=== PATIENT | female | born 1960 | race Caucasian/White ===

== ENCOUNTER 2018-02-27 11:46 | Inpatient (IN) ==
--- NOTE | 2018-02-27 13:46 | ED ---
HPI General Chief Complaint: Psychiatric Symptoms Stated Complaint: Med Complaint Time Seen by Provider: 02/27/18 13:22 Source: patient and family Mode of arrival: ambulatory Limitations: no limitations History of Present Illness MD complaint: Reports other (Hallucinations) Onset (ago): day(s) Duration: constant and getting worse History of same: Yes Relieving factors: none Exacerbating factors: none Associated psychiatric symptoms: Reports auditory hallucinations; Denies suicidal ideation and homicidal ideation Associated symptoms: Reports denies other symptoms Treatments prior to arrival: Reports none Related Data Home Medications Medication Instructions Recorded Confirmed chlorthalidone 25 mg PO DAILY 02/21/18 02/27/18 losartan 25 mg PO DAILY 02/21/18 02/27/18 verapamil 80 mg PO TID 02/21/18 02/27/18 Allergies Allergy/AdvReac Type Severity Reaction Status Date / Time lactose Allergy Cough Unverified 02/27/18 12:04 Review of Systems ROS: all other systems reviewed are negative [facility] Medical History Medical History Arthritis (Acute) Asthma (Acute) Depression (Acute) Hypertension (Acute) Mood disorder (Acute) Sleep apnea (Acute) Surgical History Surgical History H/O section (Acute) Social History Social History Substance History: Unable to Obtain Second Hand Smoke Exposure: No Smoking Status: Never smoker How Often Do You Have a Drink Containing Alcohol: Never Recent Travel in [facility] within the Last 8 Weeks: No Recent Out of Country Travel within the Last 8 Weeks: No Immunization History Tetanus Immunization: <5 Years Exam Const General: cooperative, healthy appearing, comfortable, no acute distress, well developed and other Orientation: alert, awake and oriented x3 HENMT Head: normal to inspection, normocephalic and atraumatic Eyes Alignment and Position: alignment normal and position abnormal Conjunctivae: conjunctivae normal Sclera: sclerae normal EOM: EOM intact bilaterally Neck Neck: normal visual inspection and full ROM Chest Chest: normal inspection of the chest Resp Effort & Inspection: normal respiratory effort and able to speak in complete sentences Auscultation: clear to auscultation bilaterally Cardio Rate: regular rate Rhythm: regular rhythm GI Inspection: normal to inspection Palpation: soft Back/Spine/Pelvis Cervical Spine: cervical ROM normal Thoracic/Lumbar Spine: thoraco-lumbar ROM normal Skin General: no rashes or lesions noted, turgor normal and dry skin Neuro General: alert, awake, oriented x3, moves all extremities and CN's II-XI intact bilaterally Extrem General: normal to inspection and full ROM Psych Appearance: other (Obese. Sitting on the edge of the stretcher with her eyes closed.) Speech and Movement: speech and movement normal Mood: congruent mood Affect: blunted Attitude: cooperative Thought Content: hallucinations Course Initial Documented Vital Signs Temperature 99.4 F 02/27/18 11:58 Pulse Rate 90 02/27/18 11:58 Respiratory Rate 16 02/27/18 11:58 Blood Pressure 136/91 H 02/27/18 11:58 Pulse Oximetry 92 L 02/27/18 11:58 Last Documented Vital Signs Temperature 98.1 F 02/27/18 14:05 Pulse Rate 66 02/27/18 17:17 Respiratory Rate 18 02/27/18 17:17 Blood Pressure 170/88 H 02/27/18 17:17 Pulse Oximetry 96 02/27/18 17:17 Medical Decision Making [facility] Narrative Medical decision making narrative: This patient is brought in by her daughter who is her stator tester with a chief complaint of progressively worsening hallucinations. The daughter came here hoping to get a prescription for Haldol. The daughter was instructed that the patient will need to be seen before she could be given a prescription for Haldol. When she went back out to the parking lot to get her mother, she found her wandering around in the parking lot. She seemed confused. The daughter states that the patient has started threatening people. She was supposed to go to [facility] today for a Haldol injection. However, she apparently did not have an appointment with them today. [facility] instructed the daughter to bring the patient here. The daughter reports that they have been here several times in the last few days and that nothing has been done to help her mother from a psychiatric standpoint. I have ordered the psych medical screening labs. She needs to be seen by psych screening. CBC shows slightly elevated white blood cell count of 14.1, otherwise unremarkable. CMP shows renal insufficiency with creatinine 1.74, BUN 30, GFR 30. Slightly above her baseline previous labs. Urinalysis shows 30 protein, large occult blood, trace leukocyte esterase, 6 red blood cells, 14 white blood cells, few bacteria, few mucus. Consistent with UTI, patient will be treated with Keflex. Urine tox is negative. Alcohol is negative. Patient is medically cleared for psychiatric evaluation and disposition. Patient seen by clinical psychologist licensedLYDIA Flor who states patient will be admitted to inpatient psych for further treatment and evaluation. Medical Screen Exam Complete: Yes Emergency Medical Condition: Yes Differential Diagnosis Differential Diagnosis: Differential diagnosis of psychosis includes but is not limited to schizophrenia, schizoaffective disorder, bipolar disorder, intoxication, substance abuse, dementia Lab Data Result diagrams: 02/27/18 14:00 02/27/18 14:00 Lab Results 02/27/18 02/27/18 02/27/18 Range/Units 14:00 14:00 14:00 WBC 14.1 H (4.0-11.0) th/mm3 RBC 4.57 (4.00-5.30) mil/mm3 Hgb 12.7 (11.6-15.3) gm/dL Hct 39.7 (35.0-46.0) % MCV 87.0 (80.0-100.0) fL MCH 27.9 (27.0-34.0) pg MCHC 32.0 (32.0-36.0) % RDW 21.5 H (11.6-17.2) % Plt Count 450 (150-450) th/mm3 MPV 7.7 (7.0-11.0) fL Neut % (Auto) 81.3 H (16.0-70.0) % Lymph % (Auto) 10.4 (9.0-44.0) % [place] % (Auto) 7.6 (0.0-8.0) % Eos % (Auto) 0.3 (0.0-4.0) % Baso % (Auto) 0.4 (0.0-2.0) % Neut # (Auto) 11.4 H (1.8-7.7) th/mm3 Lymph # (Auto) 1.5 (1.0-4.8) th/mm3 [place] # (Auto) 1.1 H (0.0-0.9) th/mm3 Eos # (Auto) 0.0 (0.0-0.4) th/mm3 Baso # (Auto) 0.1 (0.0-0.2) th/mm3 WBC Differential . Differential Comment Auto diff final Sodium 136 (136-145) meq/L Potassium 3.7 (3.5-5.1) meq/L Chloride 98 (98-107) meq/L Carbon Dioxide 29.2 (21.0-32.0) meq/L Anion Gap 9 (5-15) meq/L BUN 30 H (7-18) mg/dL Creatinine 1.74 H (0.50-1.00) mg/dL Estimated GFR 30 L (>89) mL/min Random Glucose 108 H (74-106) mg/dL Calcium 9.4 (8.5-10.1) mg/dL Magnesium 2.0 (1.5-2.5) mg/dL Total Bilirubin 0.6 (0.2-1.0) mg/dL AST 22 (15-37) U/L ALT 31 (10-53) U/L Alkaline Phosphatase 127 H (45-117) U/L Total Protein 9.2 H D (6.4-8.2) g/dL Albumin 3.8 (3.4-5.0) g/dL TSH 1.100 (0.358-3.740) uIU/mL Urine Color (Yellw/Straw) Urine Clarity (Clear) Urine pH (5.0-8.5) Ur Specific [place] (1.002-1.035) Urine Protein (Neg-Trace) mg/dL Urine Glucose (UA) (Negative) mg/dL Urine Ketones (Negative) mg/dL Urine Occult Blood (Negative) Urine Nitrate (Negative) Urine Bilirubin (Negative) Urine Urobilinogen (Less than 2) mg/dL Ur Leukocyte Esterase (Negative) Urine RBC (0-3) /hpf Urine WBC (0-5) /hpf Ur Squamous Epith Cells (0-5) /hpf Urine Bacteria (None) /hpf Hyaline Casts (0-3) /lpf Urine Mucus (Occasional) /lpf Micro UA Comment Ur Microscopic Review Urine Culture Comments Urine Opiates Screen Neg (Neg) Ur Barbiturates Screen Neg (Neg) Ur Amphetamines Screen Neg (Neg) U Benzodiazepines Scrn Neg (Neg) Urine Cocaine Screen Neg (Neg) U Cannabinoids Screen Neg (Neg) Serum Alcohol Less than 3 (0-5) mg/dL 02/27/18 Range/Units 14:00 WBC (4.0-11.0) th/mm3 RBC (4.00-5.30) mil/mm3 Hgb (11.6-15.3) gm/dL Hct (35.0-46.0) % MCV (80.0-100.0) fL MCH (27.0-34.0) pg MCHC (32.0-36.0) % RDW (11.6-17.2) % Plt Count (150-450) th/mm3 MPV (7.0-11.0) fL Neut % (Auto) (16.0-70.0) % Lymph % (Auto) (9.0-44.0) % [place] % (Auto) (0.0-8.0) % Eos % (Auto) (0.0-4.0) % Baso % (Auto) (0.0-2.0) % Neut # (Auto) (1.8-7.7) th/mm3 Lymph # (Auto) (1.0-4.8) th/mm3 [place] # (Auto) (0.0-0.9) th/mm3 Eos # (Auto) (0.0-0.4) th/mm3 Baso # (Auto) (0.0-0.2) th/mm3 WBC Differential Differential Comment Sodium (136-145) meq/L Potassium (3.5-5.1) meq/L Chloride (98-107) meq/L Carbon Dioxide (21.0-32.0) meq/L Anion Gap (5-15) meq/L BUN (7-18) mg/dL Creatinine (0.50-1.00) mg/dL Estimated GFR (>89) mL/min Random Glucose (74-106) mg/dL Calcium (8.5-10.1) mg/dL Magnesium (1.5-2.5) mg/dL Total Bilirubin (0.2-1.0) mg/dL AST (15-37) U/L ALT (10-53) U/L Alkaline Phosphatase (45-117) U/L Total Protein (6.4-8.2) g/dL Albumin (3.4-5.0) g/dL TSH (0.358-3.740) uIU/mL Urine Color [place] (Yellw/Straw) Urine Clarity Hazy H (Clear) Urine pH 5.0 (5.0-8.5) Ur Specific [place] 1.016 (1.002-1.035) Urine Protein 30 H (Neg-Trace) mg/dL Urine Glucose (UA) Negative (Negative) mg/dL Urine Ketones Negative (Negative) mg/dL Urine Occult Blood Large H (Negative) Urine Nitrate Negative (Negative) Urine Bilirubin Negative (Negative) Urine Urobilinogen 0.2 (Less than 2) mg/dL Ur Leukocyte Esterase Trace H (Negative) Urine RBC 6 H (0-3) /hpf Urine WBC 14 H (0-5) /hpf Ur Squamous Epith Cells 1 (0-5) /hpf Urine Bacteria Few H (None) /hpf Hyaline Casts 34 (0-3) /lpf Urine Mucus Few H (Occasional) /lpf Micro UA Comment Culture indicated Ur Microscopic Review Not Reportable Urine Culture Comments Culture indicated Urine Opiates Screen (Neg) Ur Barbiturates Screen (Neg) Ur Amphetamines Screen (Neg) U Benzodiazepines Scrn (Neg) Urine Cocaine Screen (Neg) U Cannabinoids Screen (Neg) Serum Alcohol (0-5) mg/dL Discharge Plan Discharge Disposition Patient Disposition: ED Admit(ED Internal Use Only) Discharge Condition Condition: Stable Discharge Details Diagnosis: Acute psychosis Physicians Team ED Provider: Charmaine Madrigal ED Midlevel Provider: Mariel Hagan Primary Care Provider: Jcarlos Jimenez III Rxs /Orders / Referrals /Forms Prescriptions: No Action chlorthalidone 25 mg Tablet 25 mg PO DAILY RF: 0 losartan 25 mg Tablet 25 mg PO DAILY RF: 0 verapamil 80 mg Tablet 80 mg PO TID RF: 0 Status ED Status: Medically Cleared
[2018-02-27 14:26] LABS: Baso # (Auto) 0.1 th/mm3 (0.0-0.2); Baso % (Auto) 0.4 % (0.0-2.0); Eos % (Auto) 0.3 % (0.0-4.0); Hematocrit 39.7 % (35.0-46.0); Hemoglobin 12.7 gm/dL (11.6-15.3); Lymph # (Auto) 1.5 th/mm3 (1.0-4.8); Lymph % (Auto) 10.4 % (9.0-44.0); Mean Corpuscular Hemoglobin 27.9 pg (27.0-34.0); Mean Platelet Volume 7.7 fL (7.0-11.0); Mono # (Auto) 1.1 th/mm3 (0.0-0.9); Mono % (Auto) 7.6 % (0.0-8.0); Neut # (Auto) 11.4 th/mm3 (1.8-7.7); Neut % (Auto) 81.3 % (16.0-70.0); Platelet Count 450 th/mm3 (150-450); Red Blood Count 4.57 mil/mm3 (4.00-5.30); Red Cell Distribution Width 21.5 % (11.6-17.2); White Blood Count 14.1 th/mm3 (4.0-11.0)
[2018-02-27 14:34] LABS: Amphetamine Screen,Urine Neg (Neg); Barbiturate Screen,Urine Neg (Neg); Cannabinoid Screen,Urine Neg (Neg); Cocaine Screen,Urine Neg (Neg)
[2018-02-27 14:38] LABS: Opiate Screen,Urine Neg (Neg)
[2018-02-27 14:42] LABS: Alanine Aminotransferase 31 U/L (10-53); Albumin 3.8 g/dL (3.4-5.0); Anion Gap 9 meq/L (5-15); Aspartate Aminotransferase 22 U/L (15-37); Blood Urea Nitrogen 30 mg/dL (7-18); Calcium 9.4 mg/dL (8.5-10.1); Carbon Dioxide 29.2 meq/L (21.0-32.0); Chloride 98 meq/L (98-107); Glomerular Filtration Rate 30 mL/min (>89); Glucose,Random 108 mg/dL (74-106); Potassium 3.7 meq/L (3.5-5.1); Sodium 136 meq/L (136-145)
[2018-02-27 14:52] LABS: Alkaline Phosphatase 127 U/L (45-117); Total Protein 9.2 g/dL (6.4-8.2)
[2018-02-27 15:12] LABS: Bacteria,Urine Few /hpf; Bilirubin,Urine Negative (Negative); Clarity,Urine Hazy (Clear); Color,Urine Amber (Yellw/Straw); Glucose,Urine (UA) Negative (Negative); Hyaline Casts,Urine 34 /lpf (0-3); Leukocyte Esterase,Urine Trace (Negative); Mucus,Urine Few /lpf (Occasional); Nitrite,Urine Negative (Negative); Specific Gravity,Urine 1.016 (1.002-1.035); Squamous Epithelial Cell,Urine 1 /hpf (0-5)
[2018-02-27 15:16] LABS: Urobilinogen,Urine 0.2 mg/dL (Less than 2)
--- NOTE | 2018-02-27 18:29 | ED ---
HPI - Psych - General Time Seen by Psych Provider: 17:30 Source: patient, family (Daughter at bedside), old records reviewed Mode of arrival: ambulatory Limitations: physical limitation (morbidly obese) - History of Present Illness MD complaint: other Onset (ago): day(s) Duration: constant, getting worse History of same: Yes Relieving factors: none Exacerbating factors: none Context: not taking psychiatric medications Associated psychiatric symptoms: auditory hallucinations Associated symptoms: denies other symptoms Treatments prior to arrival: none If self harm: other (Unable to assess) - General Chief Complaint: Psychiatric Symptoms Stated Complaint: Med Complaint Time Seen by Provider: 02/27/18 13:22 - History of Present Illness HPI Narrative: History of Present Illness: DaughterBettina is at bedside. I know the mother came in [facility] patient is a 58-year-old , female, with previous psychiatric history of unspecified psychosis secondary to sleep deprivation, adjustment disorder, four previous psychiatric admissions, one remote history of suicide attempt, currently not taking any psychiatric medications who presents to the ED on a voluntary status accompanied by her daughter. On reviewing the electronic medical record I see that the patient has presented to the emergency department on February 20, 2018 complaining of feeling stressed and depressed and not being able to sleep. She presented on 02/23/2018 complaining of shortness of breath, next visit on 02/26/2018 requesting medication and also reporting sleep impairment as well as hallucinations. She was discharged because she informed the provider that she had an appointment today at [facility] for medication. Unfortunately the daughter tells me that when she took her mother to [facility] they were unable to see her and referred her back to the emergency department. Today her daughter tells me that the mom has been having continued difficulty with sleep for at least 3 weeks, has been reporting she is hearing voices that are telling her to throw herself on the floor as well as had are telling her to hurt her brother, she has been telling her that people are listening to her conversations and are looking at her when they are actually not doing so, and has one episode of leaving the car and wandering around the hospital parking lot. The patient is seen. She is in bed with her eyes closed. She opens them briefly but does not maintain eye contact for any amount of time. She did respond to some questions but for the most part she remained nonverbal. She did tell me that "I keep hearing voices in my head."As stated previously she then closes her eyes and did not answer any further questions. EMR reviewed. The patient has 4 previous admissions to [facility] psychiatry Department. Her last admission was in 2015 under the care of Dr. Terrance Alejandro with a discharge diagnosis of adjustment disorder with depressed mood and dependent personality disorder traits. Patient has not followed up with outpatient psychiatric care since this discharged. Labs are reviewed. Patient with WBC of 14.1 and has been given a first dose of Keflex for suspected UTI. Toxicology is negative (Basia Bobby) - Related Data Home Medications Medication Instructions Recorded Confirmed chlorthalidone 25 mg PO DAILY 02/21/18 02/27/18 losartan 25 mg PO DAILY 02/21/18 02/27/18 verapamil 80 mg PO TID 02/21/18 02/27/18 Allergies Allergy/AdvReac Type Severity Reaction Status Date / Time lactose Allergy Cough Unverified 02/27/18 12:04 [facility] - History History Provided By: Patient, Family Member, Medical Record - Medical History Medical History: Medical History (Last Reviewed 02/27/18 @ 13:41 by Charmaine Madrigal) Arthritis Asthma Depression Hypertension Mood disorder Sleep apnea - Surgical History Surgical History: Surgical History (Last Reviewed 02/27/18 @ 13:41 by Charmaine Madrigal) H/O section - Social History I have reviewed the patient's Social History: Yes - Tobacco History Second Hand Smoke Exposure: No Smoking Status: Never smoker - Alcohol History How Often Do You Have a Drink Containing Alcohol: Never - Substance Use History Substance History: Unable to Obtain - Travel History Recent Travel in the [facility] Within the Last 8 Weeks: No Recent Travel Out of the Country Within the Last 8 Weeks: No - Immunization History Tetanus Immunization: <5 Years Psychiatric History - Psychiatric History Psychiatric Treatment History: History of Psychiatric Treatment, History of Hospitalization in a Psychiatric Facility History of Inpatient Treatment: Yes Firearms in Home: No - Psychiatric History 4 lifetime psychiatric admissions to [facility] psychiatry Department. Her last admission was in 2015. No current outpatient psychiatric care. Went remote previous suicide attempt. (Basia Bobby) - Family Psychiatric History Maternal grandmother completed suicide. (Basia Bobby) Physical Exam - General Limitations: no limitations Mental Status Examination Appearance: Disheveled, Other (Morbidly obese female) Consciousness: Alert Orientation: Person Motor Activity: Other Speech: Hesitant, Other (Nonverbal at times) Language: Adequate Fund of Knowledge: Adequate Attention and Concentration: Inadequate Memory: Unremarkable Mood: Sad Affect: Blunt Thought Process & Associations: Other (Unable to fully evaluate) Thought Content: Hallucinations Hallucination Type: Auditory Delusion Type: Paranoid Suicidal Ideation: No Suicidal Plan: No Suicidal Intention: No Homicidal Ideation: No Homicidal Plan: No Homicidal Intention: No Insight: Poor Judgment: Poor Initial Documented Vital Signs Temperature 99.4 F 02/27/18 11:58 Pulse Rate 90 02/27/18 11:58 Respiratory Rate 16 02/27/18 11:58 Blood Pressure 136/91 H 02/27/18 11:58 Pulse Oximetry 92 L 02/27/18 11:58 Last Documented Vital Signs Temperature 98.1 F 02/27/18 14:05 Pulse Rate 66 02/27/18 17:17 Respiratory Rate 18 02/27/18 17:17 Blood Pressure 170/88 H 02/27/18 17:17 Pulse Oximetry 96 02/27/18 17:17 MDM - Psych - Diagnosis (1) Unspecified psychosis Code(s): F29 - Unspecified psychosis not due to a substance or known physiological condition Status: Acute - Lab Data Result diagrams: 02/27/18 14:00 02/27/18 14:00 - [facility] Narrative Medical decision making narrative: 58-year-old female with previous psychiatric history of adjustment disorder as well as unspecified psychosis secondary to sleep deprivation. Who presents to the emergency department for her fourth visit within a week. Today the patient continues to endorse sleep impairment, hallucinations, paranoid thoughts. Family reported increase in threats to harm family members as well as wandering around the hospital parking lot which she is not usual behavior for the patient. The family was hoping the patient would be seen today at [facility] for medications but they were unable to see her and they referred her here to the hospital. Patient will be admitted to inpatient psychiatry for further evaluation and for stabilization and for medication. I have placed her under an involuntary status at this time. I will order a hospitalist consult to manage medical issues. (Basia Bobby) - Lab Data Lab Results 01/07/19 01/07/19 01/07/19 Range/Units 14:00 14:00 14:00 WBC 14.1 H (4.0-11.0) th/mm3 RBC 4.57 (4.00-5.30) mil/mm3 Hgb 12.7 (11.6-15.3) gm/dL Hct 39.7 (35.0-46.0) % MCV 87.0 (80.0-100.0) fL MCH 27.9 (27.0-34.0) pg MCHC 32.0 (32.0-36.0) % RDW 21.5 H (11.6-17.2) % Plt Count 450 (150-450) th/mm3 MPV 7.7 (7.0-11.0) fL Neut % (Auto) 81.3 H (16.0-70.0) % Lymph % (Auto) 10.4 (9.0-44.0) % [place] % (Auto) 7.6 (0.0-8.0) % Eos % (Auto) 0.3 (0.0-4.0) % Baso % (Auto) 0.4 (0.0-2.0) % Neut # (Auto) 11.4 H (1.8-7.7) th/mm3 Lymph # (Auto) 1.5 (1.0-4.8) th/mm3 [place] # (Auto) 1.1 H (0.0-0.9) th/mm3 Eos # (Auto) 0.0 (0.0-0.4) th/mm3 Baso # (Auto) 0.1 (0.0-0.2) th/mm3 WBC Differential . Differential Comment Auto diff final Sodium 136 (136-145) meq/L Potassium 3.7 (3.5-5.1) meq/L Chloride 98 (98-107) meq/L Carbon Dioxide 29.2 (21.0-32.0) meq/L Anion Gap 9 (5-15) meq/L BUN 30 H (7-18) mg/dL Creatinine 1.74 H (0.50-1.00) mg/dL Estimated GFR 30 L (>89) mL/min Random Glucose 108 H (74-106) mg/dL Calcium 9.4 (8.5-10.1) mg/dL Magnesium 2.0 (1.5-2.5) mg/dL Total Bilirubin 0.6 (0.2-1.0) mg/dL AST 22 (15-37) U/L ALT 31 (10-53) U/L Alkaline Phosphatase 127 H (45-117) U/L Total Protein 9.2 H D (6.4-8.2) g/dL Albumin 3.8 (3.4-5.0) g/dL TSH 1.100 (0.358-3.740) uIU/mL Urine Color (Yellw/Straw) Urine Clarity (Clear) Urine pH (5.0-8.5) Ur Specific [place] (1.002-1.035) Urine Protein (Neg-Trace) mg/dL Urine Glucose (UA) (Negative) mg/dL Urine Ketones (Negative) mg/dL Urine Occult Blood (Negative) Urine Nitrate (Negative) Urine Bilirubin (Negative) Urine Urobilinogen (Less than 2) mg/dL Ur Leukocyte Esterase (Negative) Urine RBC (0-3) /hpf Urine WBC (0-5) /hpf Ur Squamous Epith Cells (0-5) /hpf Urine Bacteria (None) /hpf Hyaline Casts (0-3) /lpf Urine Mucus (Occasional) /lpf Micro UA Comment Ur Microscopic Review Urine Culture Comments Urine Opiates Screen Neg (Neg) Ur Barbiturates Screen Neg (Neg) Ur Amphetamines Screen Neg (Neg) U Benzodiazepines Scrn Neg (Neg) Urine Cocaine Screen Neg (Neg) U Cannabinoids Screen Neg (Neg) Serum Alcohol Less than 3 (0-5) mg/dL 02/27/18 Range/Units 14:00 WBC (4.0-11.0) th/mm3 RBC (4.00-5.30) mil/mm3 Hgb (11.6-15.3) gm/dL Hct (35.0-46.0) % MCV (80.0-100.0) fL MCH (27.0-34.0) pg MCHC (32.0-36.0) % RDW (11.6-17.2) % Plt Count (150-450) th/mm3 MPV (7.0-11.0) fL Neut % (Auto) (16.0-70.0) % Lymph % (Auto) (9.0-44.0) % [place] % (Auto) (0.0-8.0) % Eos % (Auto) (0.0-4.0) % Baso % (Auto) (0.0-2.0) % Neut # (Auto) (1.8-7.7) th/mm3 Lymph # (Auto) (1.0-4.8) th/mm3 [place] # (Auto) (0.0-0.9) th/mm3 Eos # (Auto) (0.0-0.4) th/mm3 Baso # (Auto) (0.0-0.2) th/mm3 WBC Differential Differential Comment Sodium (136-145) meq/L Potassium (3.5-5.1) meq/L Chloride (98-107) meq/L Carbon Dioxide (21.0-32.0) meq/L Anion Gap (5-15) meq/L BUN (7-18) mg/dL Creatinine (0.50-1.00) mg/dL Estimated GFR (>89) mL/min Random Glucose (74-106) mg/dL Calcium (8.5-10.1) mg/dL Magnesium (1.5-2.5) mg/dL Total Bilirubin (0.2-1.0) mg/dL AST (15-37) U/L ALT (10-53) U/L Alkaline Phosphatase (45-117) U/L Total Protein (6.4-8.2) g/dL Albumin (3.4-5.0) g/dL TSH (0.358-3.740) uIU/mL Urine Color [place] (Yellw/Straw) Urine Clarity Hazy H (Clear) Urine pH 5.0 (5.0-8.5) Ur Specific [place] 1.016 (1.002-1.035) Urine Protein 30 H (Neg-Trace) mg/dL Urine Glucose (UA) Negative (Negative) mg/dL Urine Ketones Negative (Negative) mg/dL Urine Occult Blood Large H (Negative) Urine Nitrate Negative (Negative) Urine Bilirubin Negative (Negative) Urine Urobilinogen 0.2 (Less than 2) mg/dL Ur Leukocyte Esterase Trace H (Negative) Urine RBC 6 H (0-3) /hpf Urine WBC 14 H (0-5) /hpf Ur Squamous Epith Cells 1 (0-5) /hpf Urine Bacteria Few H (None) /hpf Hyaline Casts 34 (0-3) /lpf Urine Mucus Few H (Occasional) /lpf Micro UA Comment Culture indicated Ur Microscopic Review Not Reportable Urine Culture Comments Culture indicated Urine Opiates Screen (Neg) Ur Barbiturates Screen (Neg) Ur Amphetamines Screen (Neg) U Benzodiazepines Scrn (Neg) Urine Cocaine Screen (Neg) U Cannabinoids Screen (Neg) Serum Alcohol (0-5) mg/dL
[2018-02-27] MEDS ORDERED: Aluminum/Magnesium/Simethacone Susp 30 ML UDC PO PRN (18:42)
[2018-02-28] MEDS ORDERED: CHLORTHALIDONE 25 MG PO SCH (09:00)
[2018-02-28] MEDS: Chlorthalidone 50 MG Tablet PO SCH (12:29)
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
[2018-02-28] MEDS: traZODone 50 MG Tablet PO SCH (20:35)
[2018-02-28] MEDS: Haloperidol 5 MG Tablet PO SCH (20:41)
[2018-03-01] MEDS: Chlorthalidone 50 MG Tablet PO SCH (08:37)
[2018-03-01] MEDS: Haloperidol 5 MG Tablet PO SCH ×2 (08:37→20:10)
[2018-03-01 09:12] LABS: Hematocrit 36.7 % (35.0-46.0); Hemoglobin 11.9 gm/dL (11.6-15.3); Mean Corpuscular HGB Conc 32.4 % (32.0-36.0); Mean Corpuscular Hemoglobin 28.5 pg (27.0-34.0); Mean Platelet Volume 7.9 fL (7.0-11.0); Platelet Count 366 th/mm3 (150-450); Red Blood Count 4.17 mil/mm3 (4.00-5.30); Red Cell Distribution Width 21.8 % (11.6-17.2); White Blood Count 6.8 th/mm3 (4.0-11.0)
[2018-03-01 09:42] LABS: Calcium 9.1 mg/dL (8.5-10.1); Carbon Dioxide 27.5 meq/L (21.0-32.0); Potassium 3.5 meq/L (3.5-5.1)
--- NOTE | 2018-03-01 10:46 | P.PNPSY ---
Subjective Remarks: Patient seen in her room with nurse less, patient laying in bed, no acute distress. Chart reviewed. Hospitalist consult reviewed and appreciated. Patient states she slept somewhat better though her sleep is still disturbed the continued auditory hallucinations are somewhat intrusive nature. She is somewhat vague about suicidality at this time also. For now continue treatment no change Review of Systems All other systems reviewed negative except as stated in HPI Mental Status Examination Appearance: Appropriate, Disheveled, Other (Morbidly obese female) Consciousness: Alert Orientation: Person, Place, Date/Time Motor Activity: Other (Patient laying flat in bed with minimal movement) Speech: Hesitant, Other (Nonverbal at times) Language: Adequate Fund of Knowledge: Adequate Attention and Concentration: Inadequate Memory: Unremarkable Mood: Sad Affect: Other (Decreased range and intensity) Thought Process & Associations: Loose associations, Other (Unable to fully evaluate) Thought Content: Hallucinations Hallucination Type: Auditory Delusion Type: Paranoid Suicidal Ideation: No Suicidal Plan: No Suicidal Intention: No Homicidal Ideation: No Homicidal Plan: No Homicidal Intention: No Insight: Poor Judgment: Poor Assessment and Plan - Assessment (1) Unspecified psychosis Code(s): F29 - Unspecified psychosis not due to a substance or known physiological condition Status: Acute - Plan Plan: Patient continues depressed and psychotic, for now continue treatment no change Justification for Continued Inpatient Stay: At this time patient would decompensate if placed on lower level of care Discharge Planning: Probable return home with family Request Healthcare Surrogate/Guardian Advocate?: No (1) Unspecified psychosis Qualifiers: Psychosis type: brief psychotic disorder Qualified Code(s): F23 - Brief psychotic disorder
--- NOTE | 2018-03-01 14:08 | P.TTN ---
- Patient Problems Problems: 1. Discharge planning 2. Medication compliance 3. Knowledge deficit 4. Lack of coping skills - Progress Toward Goals Provider Present: Dr. Hao Quintanilla Provider Input: 03/01/18 patient found lying in her bed. Patient was pleasant, confused, medication compliant. Nurse Input: 03/01/18 Patient is cooperative, med compliant Psychiatric Counselors Present: Lilia Luke [facility] Psychiatric Therapist Input: 03/01/18 Patient found in her room lying down. Patient was pleasant, cooperative, still confused and paranoid. Patient is medication compliant Group Spec/RT/OT/ALLAN Present: ANGY Vogel Group Spec/RT/OT/ALLAN Input: 03/01/18 Patient refused to go to group - Documentation Teaching Recipient: Patient
--- NOTE | 2018-03-01 16:31 | P.PN ---
Subjective Interval history: Follow up for HTN uncontrolled, obesity, KUMAR: pt. seen and examined, sleeping, awakes to voice. Has no complaints other than feeling sleepy. Has not been drinking a lot of fluids. No cp, no sob. BP has been elevated up to 180s, HR up to 90s. Physical Exam Vital signs: Vital Signs 02/28/18 17:37 03/01/18 05:08 Temperature 97.2 F L 98.1 F Pulse Rate 100 H 91 H Respiratory Rate 20 18 Blood Pressure 164/72 H 187/84 H Pulse Oximetry 93 L 97 Intake & Output 02/28/18 03/01/18 03/01/18 18:59 06:59 18:59 Intake Total 1200 / 1200 0 / 0 Balance 1200 / 1200 0 / 0 Intake: Oral 1200 / 1200 0 / 0 Other: # Voids 2 1 Narrative: GENERAL: 58-year-old morbidly obese female, ambulating with walker, no apparent distress. SKIN: Warm and dry. Venous stasis bilateral lower extremity. HEAD: Atraumatic. Normocephalic. EYES: Pupils equal and round. No scleral icterus. No injection or drainage. ENT: No nasal bleeding or discharge. Mucous membranes pink and moist. NECK: Trachea midline. No JVD. CARDIOVASCULAR: Regular rate and rhythm. RESPIRATORY: No accessory muscle use. Clear to auscultation. Breath sounds equal bilaterally. Poor inspiratory effort. GASTROINTESTINAL: Abdomen soft, non-tender, nondistended. Hepatic and splenic margins not palpable. MUSCULOSKELETAL: No joint abnormality noted, ambulates with walker. Venous stasis to both legs, skin is thickened. Trace pedal edema. NEUROLOGICAL: Awakes to voice, alert oriented x3. Following commands. No focal deficits. PSYCHIATRIC:sleepy Results - Labs CBC & Chem 7: 03/01/18 08:06 03/01/18 08:06 Laboratory Results - last 24 hr 03/01/18 03/01/18 08:06 08:06 WBC 6.8 RBC 4.17 Hgb 11.9 Hct 36.7 MCV 88.0 MCH 28.5 MCHC 32.4 RDW 21.8 H Plt Count 366 MPV 7.9 Sodium 138 Potassium 3.5 Chloride 101 Carbon Dioxide 27.5 Anion Gap 10 BUN 47 H Creatinine 2.28 H Estimated GFR 22 L Random Glucose 84 Calcium 9.1 Microbiology 02/27/18 14:00 Clean Catch Urine Urine Culture - Final >100,000 cfu/mL mixed gram positive jayjay (probable contaminantes) Assessment and Plan - Plan 58-year-old morbidly obese female with history hypertension, obesity, sleep apnea, mood disorder, depression, chronic kidney disease stage III. Admitted for auditory hallucinations, mood disorder, depression. Currently under [place] act and psychiatric unit. Hospitalist service is consulted for medical management, presence of UTI Mood disorder with psychosis Depression -Continue with psychiatric management Chronic kidney disease stage III, patient appears to be at baseline Encourage p.o. intake of fluids Repeat BMP in the morning Patient counseled to avoid NSAIDs at home. She can take Tylenol as needed for arthritic pain. -Creat 2.28, GFR 22, enc. PO fluids. Will hold Cozaar and chlorthalidone. -enc. PO fluids. Hypertension, uncontrolled on chlorthalidone, Cozaar, verapamil -added clonidine 0.1 mg p.o. every 6 as needed for systolic greater than 160 and diastolic greater than 90 -will hold Chlorthalidone and Cozaar due to KUAMR, add Procardia XL 30 mg po daily. -HR elevated as well, on Verapamil-will hold and try Lopressor 25 mg po bid. -continue to monitor BP and adjust meds as necessary UA positive for UTI Continue Keflex 250 mg p.o. every 8 for 5 days -UC, mixed gram positive jayjay Obesity -Patient is counseled about weight, needs portion control, increase activity as tolerated Sleep apnea, does not use CPAP at home Needs to follow-up as outpatient to be fitted with mask Osteoarthritis, complaints of bilat knee pain Avoid NSAIDs, can use Tylenol as needed for pain Needs to lose weight Repeat labs in the morning DVT prophylaxispatient is ambulatory Repeat BMP in 2 days Code Status: Full code Discussed Condition With: RN, pt. Discharge Planning: Per psychiatric team
[2018-03-01] MEDS: traZODone 50 MG Tablet PO SCH (20:05)
[2018-03-01] MEDS: Metoprolol Tartrate 25 MG Tablet PO SCH (20:09)
--- NOTE | 2018-03-01 21:00 | P.CONPSY ---
Provisional Diagnosis Admission Date: February 27, 2018 18:42 [place] I.: Brief psychotic disorder History of Present Illness Service: Psychiatry Consult date: 03/01/18 Requesting Physician: Leroy Quintanilla Reason for Consult: Second opinion Primary Care Provider: Jcarlos Castro III, MD, R2 Chief Complaint: knee pain History of Present Illness: Patient is a 58 y/o woman who was admitted for psychosis, found ambulating on the unit, seen with nurse. Patient was explained the purpose of my visit. Patient states that she keeps hearing voices telling her that someone is in the room with her "whenever I'm in bed". She states that she also hears several voices, specifically the voices of her grandchildren which she believes is in her mattress. She also endorses bizarre delusions of "el violeta is after me" and that an FBI agent told her that there were devices and she was "wi-fi'-ed". She is ambiguous about suicidal ideation states that she will "if this doesn' t get better. Review of Systems All other systems reviewed negative except as stated in HPI PMFSH - History History Provided By: Patient, Medical Record - Medical History Medical History: Medical History (Last Updated 02/28/18 @ 15:35 by LYDIA Hernández) CKD (chronic kidney disease), stage III Obesity Venous stasis Arthritis Asthma Depression Hypertension Mood disorder Sleep apnea - Surgical History Surgical History: Surgical History (Last Reviewed 02/28/18 @ 15:35 by LYDIA Hernández) H/O section - Family History Family History: Family History (Last Updated 02/28/18 @ 15:36 by LYDIA Hernández) Other Diabetes 1.5, managed as type 2 - Tobacco History Second Hand Smoke Exposure: No Smoking Status: Never smoker - Alcohol History How Often Do You Have a Drink Containing Alcohol: Never - Substance Use History Substance History: Unable to Obtain - Travel History Recent Travel in the [place] Within the Last 8 Weeks: No Recent Travel Out of the Country Within the Last 8 Weeks: No - Immunization History Tetanus Immunization: <5 Years Hx Influenza Vaccine This Season: No Medications and Allergies Active Medications: Active Medications Acetaminophen (Tylenol) 650 mg PO Q4H PRN PRN Reason: Pain 1-5 or Temp >101F Al Hydrox/Mg Hydrox/Simethicone (Mag-Al Plus Susp Liq) 30 ml PO Q6H PRN PRN Reason: DYSPEPSIA Al Hydroxide/Mg Hydroxide (Milk Of Magnesia Liq) 30 ml PO Q12H PRN PRN Reason: Mild Constipation Cephalexin Monohydrate (Keflex) 250 mg PO Q8HR [facility] Stop: 03/05/18 13:59 Last Admin: 03/01/18 13:53 Dose: 250 mg Chlorthalidone (Hygroton) 25 mg PO DAILY [facility] Last Admin: 03/01/18 08:37 Dose: 25 mg Clonidine HCl (Catapres) 0.1 mg PO Q6H PRN PRN Reason: SBP>160, DBP>90 Last Admin: 03/01/18 05:30 Dose: 0.1 mg Diphenhydramine HCl (Benadryl) 50 mg PO HS PRN PRN Reason: INSOMNIA Last Admin: 03/01/18 20:10 Dose: 50 mg Haloperidol (Haldol) 5 mg PO BID [facility] Last Admin: 03/01/18 20:10 Dose: 5 mg Hydroxyzine HCl (Atarax) 50 mg PO Q6H PRN PRN Reason: ANXIETY Last Admin: 03/01/18 17:55 Dose: 50 mg Losartan Potassium (Cozaar) 50 mg PO DAILY [facility] Last Admin: 03/01/18 08:37 Dose: 50 mg Metoprolol Tartrate (Lopressor) 25 mg PO BID [facility] Last Admin: 03/01/18 20:09 Dose: 25 mg Miscellaneous (Pill Splitter) 1 each OTHER UNSCH PRN PRN Reason: SEE LABEL COMMENTS Nifedipine (Procardia Xl) 30 mg PO DAILY [facility] Trazodone HCl (Desyrel) 50 mg PO HS [facility] Last Admin: 03/01/18 20:05 Dose: Not Given Allergies Allergy/AdvReac Type Severity Reaction Status Date / Time lactose Allergy Cough Unverified 02/27/18 12:04 Home Medications Medication Instructions Recorded Confirmed Type chlorthalidone 25 mg PO DAILY 02/21/18 02/27/18 History losartan 25 mg PO DAILY 02/21/18 02/27/18 History verapamil 80 mg PO TID 02/21/18 02/27/18 History Exam Vital signs: Vital Signs 03/01/18 05:08 03/01/18 18:06 Temperature 98.1 F 97.3 F L Pulse Rate 91 H 70 Respiratory Rate 18 18 Blood Pressure 187/84 H 118/54 L Pulse Oximetry 97 98 Intake & Output 03/01/18 03/01/18 03/02/18 06:59 18:59 06:59 Intake Total 0 / 0 Balance 0 / 0 Intake: Oral 0 / 0 Other: # Voids 1 Narrative: Patient not noted to be in acute distress, no gross motor abnormalities, no signs of tremor or EPS, no psychomotor agitation or retardation. - Constitutional no acute distress, cooperative Mental Status Examination Appearance: Appropriate, Disheveled, Other (Morbidly obese female) Consciousness: Alert Orientation: Person, Place, Date/Time Motor Activity: Other (Patient laying flat in bed with minimal movement) Speech: Hesitant Language: Adequate Fund of Knowledge: Adequate Attention and Concentration: Inadequate Memory: Unremarkable Mood: Sad Affect: Blunt Thought Process & Associations: Loose associations, Other (concrete) Thought Content: Bizarre thinking, Hallucinations, Delusional Hallucination Type: Auditory Delusion Type: Bizarre, Paranoid Suicidal Ideation: No Suicidal Plan: No Suicidal Intention: No Homicidal Ideation: No Homicidal Plan: No Homicidal Intention: No Insight: Poor Judgment: Poor Assessment and Plan - Assessment (1) Unspecified psychosis Code(s): F29 - Unspecified psychosis not due to a substance or known physiological condition Status: Acute - Plan Plan: I have seen and examined this patient, reviewed the documentation, and I agree and concur with Dr. Quintanilla assessment and plan. I have completed second opinion for the petition for involuntary hospitalization. Consult appreciated. Justification for Continued Inpatient Stay: At risk of further decompensation at lower level care. Request Healthcare Surrogate/Guardian Advocate?: No (1) Unspecified psychosis Qualifiers: Psychosis type: brief psychotic disorder Qualified Code(s): F23 - Brief psychotic disorder
[2018-03-02] MEDS: Chlorthalidone 50 MG Tablet PO SCH (08:12)
[2018-03-02] MEDS: Haloperidol 5 MG Tablet PO SCH ×2 (08:12→20:38)
[2018-03-02] MEDS: Metoprolol Tartrate 25 MG Tablet PO SCH ×2 (08:12→20:38)
--- NOTE | 2018-03-02 13:02 | P.PNPSY ---
Subjective Remarks: March 02, 2018 Subjective. Patient interviewed pacing the hallway asking which where he to turn which way to walk. Nursing staff reports the patient has been confused and anxious throughout her waking hours. Patient did not elaborate any of her delusional material from previous visits by other staff. She is cooperative with medications. Review of Systems March 02, 2018 Psychiatric: Extreme anxiety Mental Status Examination Appearance: Appropriate, Disheveled, Other (Morbidly obese female) Consciousness: Alert Orientation: Person, Place, Date/Time Motor Activity: Other (Patient laying flat in bed with minimal movement) Speech: Hesitant Language: Adequate Fund of Knowledge: Adequate Attention and Concentration: Inadequate Memory: Unremarkable Mood: Sad Affect: Blunt Thought Process & Associations: Loose associations, Other (concrete) Thought Content: Bizarre thinking, Hallucinations, Delusional Hallucination Type: Auditory Delusion Type: Bizarre, Paranoid Suicidal Ideation: No Suicidal Plan: No Suicidal Intention: No Homicidal Ideation: No Homicidal Plan: No Homicidal Intention: No Insight: Poor Judgment: Poor Assessment and Plan - Assessment (1) Unspecified psychosis Code(s): F29 - Unspecified psychosis not due to a substance or known physiological condition Status: Acute - Plan Plan: I have seen and examined this patient, reviewed the documentation, and I agree and concur with Dr. Quintanilla assessment and plan. I have completed second opinion for the petition for involuntary hospitalization. Consult appreciated. Justification for Continued Inpatient Stay: March 02, 2018 patient would deteriorated a lower level of care Request Healthcare Surrogate/Guardian Advocate?: No (1) Unspecified psychosis Qualifiers: Psychosis type: brief psychotic disorder Qualified Code(s): F23 - Brief psychotic disorder
--- NOTE | 2018-03-02 15:43 | P.PN ---
Subjective Interval history: Follow up for HTN uncontrolled, obesity, KUMAR: pt. seen and examined, sitting up in day room, smiling. Patient states she is feeling much better, denies any chest pain, no shortness of breath. Has chronic knee pain, at one point was taking tramadol, was told not to take NSAIDs. States that she is being evaluated for possible bariatric surgery in the future. Blood pressure much better controlled, heart rate 70s-80s. Physical Exam Vital signs: Vital Signs 03/01/18 18:06 03/02/18 05:41 Temperature 97.3 F L 96.9 F L Pulse Rate 70 81 Respiratory Rate 18 18 Blood Pressure 118/54 L 158/79 H Pulse Oximetry 98 92 L Intake & Output 03/01/18 03/02/18 03/02/18 18:59 06:59 18:59 Intake Total 240 / 240 120 / 120 Balance 240 / 240 120 / 120 Intake: Oral 240 / 240 120 / 120 Other: # Voids 1 Narrative: GENERAL: 58-year-old morbidly obese female, ambulating with walker, no apparent distress. SKIN: Warm and dry. Venous stasis bilateral lower extremity. HEAD: Atraumatic. Normocephalic. EYES: Pupils equal and round. No scleral icterus. No injection or drainage. ENT: No nasal bleeding or discharge. Mucous membranes pink and moist. NECK: Trachea midline. No JVD. CARDIOVASCULAR: Regular rate and rhythm. RESPIRATORY: No accessory muscle use. Clear to auscultation. Breath sounds equal bilaterally. Poor inspiratory effort. GASTROINTESTINAL: Abdomen soft, non-tender, nondistended. Hepatic and splenic margins not palpable. MUSCULOSKELETAL: No joint abnormality noted, ambulates with walker. Venous stasis to both legs, skin is thickened. Trace pedal edema. NEUROLOGICAL: Awake, alert oriented x3. Following commands. No focal deficits. PSYCHIATRIC:sleepy Results - Labs CBC & Chem 7: 03/01/18 08:06 03/01/18 08:06 Assessment and Plan - Plan 58-year-old morbidly obese female with history hypertension, obesity, sleep apnea, mood disorder, depression, chronic kidney disease stage III. Admitted for auditory hallucinations, mood disorder, depression. Currently under [place] act and psychiatric unit. Hospitalist service is consulted for medical management, presence of UTI Mood disorder with psychosis Depression -Continue with psychiatric management Chronic kidney disease stage III, patient appears to be at baseline Encourage p.o. intake of fluids Patient counseled to avoid NSAIDs at home. She can take Tylenol as needed for arthritic pain. -Creat 2.28, GFR 22, enc. PO fluids. Will hold Cozaar and chlorthalidone. -enc. PO fluids. -BMP for tomorrow Hypertension, uncontrolled on chlorthalidone, Cozaar, verapamil -added clonidine 0.1 mg p.o. every 6 as needed for systolic greater than 160 and diastolic greater than 90 -will hold Chlorthalidone and Cozaar due to KUMAR, added Procardia XL 30 mg po daily. -HR elevated as well, on Verapamil-will hold and try Lopressor 25 mg po bid. -continue to monitor BP and adjust meds as necessary -BP and HR better controlled. UA positive for UTI Continue Keflex 250 mg p.o. every 8 for 5 days -UC, mixed gram positive jayjay Obesity -Patient is counseled about weight, needs portion control, increase activity as tolerated -needs f/u as OP with PCP, states she is been evaluated for bariatric surgery by PCP Sleep apnea, does not use CPAP at home Needs to follow-up as outpatient to be fitted with mask Osteoarthritis, complaints of bilat knee pain Avoid NSAIDs, can use Tylenol as needed for pain Needs to lose weight Repeat labs in the morning DVT prophylaxispatient is ambulatory BMP in am Code Status: Full code Discussed Condition With: RN, pt Discharge Planning: Per psychiatric team
[2018-03-02] MEDS: traZODone 50 MG Tablet PO SCH (20:38)
[2018-03-02] MEDS: Acetaminophen 325 MG Tablet PO PRN (20:56)
[2018-03-03] MEDS: Haloperidol 5 MG Tablet PO SCH ×3 (08:31→22:00)
[2018-03-03] MEDS: Metoprolol Tartrate 25 MG Tablet PO SCH ×2 (08:31→21:27)
[2018-03-03] MEDS: Chlorthalidone 50 MG Tablet PO SCH (08:33)
[2018-03-03 10:14] LABS: Calcium 9.2 mg/dL (8.5-10.1); Carbon Dioxide 28.4 meq/L (21.0-32.0); Potassium 3.7 meq/L (3.5-5.1)
--- NOTE | 2018-03-03 11:02 | P.PNPSY ---
Subjective Remarks: Patient is seen in day room with nurse Lindy. Chart reviewed patient compliant medication. Patient sitting in chair with her walker next to her. She appears somewhat confused. But that she did recognize me. Her responses seem somewhat delayed today as if responding to internal stimuli. She somewhat reluctantly acknowledges continued auditory hallucinations. She also appears somewhat concerned and reluctant to talk about her home situation today. Though there does not seem to be any significant controversy going on at this time. Because of her increased auditory hallucinations we will increase the Haldol 5 mg twice daily to 5 mg 8 AM 2 PM and 10 PM. Otherwise, I will continue treatment Review of Systems All other systems reviewed negative except as stated in HPI Mental Status Examination Appearance: Appropriate, Disheveled (Improved), Other (Morbidly obese female) Consciousness: Alert Orientation: Person, Place, Date/Time Motor Activity: Other (Today needing assistance to stand up shuffling with difficulty using the walker) Speech: Hesitant, Slow Language: Adequate Fund of Knowledge: Adequate Attention and Concentration: Easily distracted Memory: Unremarkable Mood: Sad Affect: Other (Decreased range and intensity) Thought Process & Associations: Loose associations, Other ([place]) Thought Content: Bizarre thinking, Hallucinations, Delusional Hallucination Type: Auditory Delusion Type: Bizarre, Paranoid Suicidal Ideation: No Suicidal Plan: No Suicidal Intention: No Homicidal Ideation: No Homicidal Plan: No Homicidal Intention: No Insight: Poor Judgment: Poor Assessment and Plan - Assessment (1) Unspecified psychosis Code(s): F29 - Unspecified psychosis not due to a substance or known physiological condition Status: Acute - Plan Plan: Patient remains depressed with increased psychotic behavior. Showing more difficulty today. Though perhaps there is some degree of manipulation with this. See medication adjustment above will increase Haldol from 5 twice daily to 5 3 times daily Justification for Continued Inpatient Stay: At this time patient with decompensated placed in a lower level of care Discharge Planning: Possibly to return home with family Request Healthcare Surrogate/Guardian Advocate?: No (1) Unspecified psychosis Qualifiers: Psychosis type: brief psychotic disorder Qualified Code(s): F23 - Brief psychotic disorder
[2018-03-03] MEDS: traZODone 50 MG Tablet PO SCH (21:28)
[2018-03-04] MEDS: Metoprolol Tartrate 25 MG Tablet PO SCH ×2 (09:24→21:22)
[2018-03-04] MEDS: Chlorthalidone 50 MG Tablet PO SCH (09:24)
[2018-03-04] MEDS: Haloperidol 5 MG Tablet PO SCH ×3 (09:24→21:22)
--- NOTE | 2018-03-04 13:43 | P.PNPSY ---
Subjective Remarks: Patient was seen and case discussed with nursing. Patient is interviewed in bed today she appears blunted and somewhat apathetic. Nonspontaneous speech. Patient says she had hallucinations upon admission which she says today are there and are just commenting telling her what to do. She denies that they are telling her to hurt herself or others. She is talking to herself throughout the day. She denies suicidal or homicidal ideation intent or plan. Largely seclusive to self Review of Systems All other systems reviewed negative except as stated in HPI Mental Status Examination Appearance: Appropriate, Disheveled (Improved), Other (Morbidly obese female) Consciousness: Alert Orientation: Person, Place, Date/Time Motor Activity: Other (Today needing assistance to stand up shuffling with difficulty using the walker) Speech: Hesitant, Slow Language: Adequate Fund of Knowledge: Adequate Attention and Concentration: Easily distracted Memory: Unremarkable Mood: Sad Affect: Other (Decreased range and intensity) Thought Process & Associations: Loose associations, Disorganized, Other ( [place]) Thought Content: Bizarre thinking, Hallucinations, Delusional Hallucination Type: Auditory Delusion Type: Bizarre, Paranoid Suicidal Ideation: No Suicidal Plan: No Suicidal Intention: No Homicidal Ideation: No Homicidal Plan: No Homicidal Intention: No Insight: Poor Judgment: Poor Assessment and Plan - Assessment (1) Unspecified psychosis Code(s): F29 - Unspecified psychosis not due to a substance or known physiological condition Status: Acute - Plan Plan: Continue current treatment plan Justification for Continued Inpatient Stay: Patient would decompensate in a less restrictive setting Request Healthcare Surrogate/Guardian Advocate?: No (1) Unspecified psychosis Qualifiers: Psychosis type: brief psychotic disorder Qualified Code(s): F23 - Brief psychotic disorder
[2018-03-04] MEDS: traZODone 50 MG Tablet PO SCH (21:22)
[2018-03-04] MEDS: Acetaminophen 325 MG Tablet PO PRN (21:44)
[2018-03-05] MEDS: Metoprolol Tartrate 25 MG Tablet PO SCH ×2 (09:04→20:39)
[2018-03-05] MEDS: Chlorthalidone 50 MG Tablet PO SCH (09:04)
[2018-03-05] MEDS: Haloperidol 5 MG Tablet PO SCH ×3 (09:04→21:21)
--- NOTE | 2018-03-05 10:04 | P.PNPSY ---
Subjective Remarks: Reviewed electronic record and discussed with nursing staff. Rounded with JASPREET Klein. Patient in common area eating breakfast. She states that she feels that her urinary tract infection is resolving. Endorses that she is still hearing voices. Note that Dr. Quintanilla did increase her Haldol to 5mg at 0800. 1400 and 2200. She denies any visual hallucinations. Nursing reports that she showers daily, but continues to be malodorous. She is seclusive and will come out for meals. Review of Systems All other systems reviewed negative except as stated in HPI Morbidly obese. Mental Status Examination Appearance: Appropriate, Disheveled (Improved), Other (Morbidly obese female) Consciousness: Alert Orientation: Person, Place, Date/Time Motor Activity: Other (Today needing assistance to stand up shuffling with difficulty using the walker) Speech: Hesitant, Slow Language: Adequate Fund of Knowledge: Adequate Attention and Concentration: Easily distracted Memory: Unremarkable Mood: Sad Affect: Other (Decreased range and intensity) Thought Process & Associations: Loose associations, Disorganized, Other ( [place]) Thought Content: Bizarre thinking, Hallucinations, Delusional Hallucination Type: Auditory Delusion Type: Bizarre, Paranoid Suicidal Ideation: No Suicidal Plan: No Suicidal Intention: No Homicidal Ideation: No Homicidal Plan: No Homicidal Intention: No Insight: Poor Judgment: Poor Assessment and Plan - Assessment (1) Unspecified psychosis Code(s): F29 - Unspecified psychosis not due to a substance or known physiological condition Status: Acute - Plan Plan: Continue current treatment plan Justification for Continued Inpatient Stay: Moving patient to a less restrictive environment may result in her decompensation. Request Healthcare Surrogate/Guardian Advocate?: No (1) Unspecified psychosis Qualifiers: Psychosis type: brief psychotic disorder Qualified Code(s): F23 - Brief psychotic disorder
[2018-03-05] MEDS: Nystatin 100,000 UNITS/GM Powder 15 GM Bottle TOPICAL SCH ×3 (13:27→20:42)
[2018-03-05] MEDS: traZODone 50 MG Tablet PO SCH (20:39)
[2018-03-06] MEDS: Chlorthalidone 50 MG Tablet PO SCH (08:19)
[2018-03-06] MEDS: Metoprolol Tartrate 25 MG Tablet PO SCH ×2 (08:19→21:26)
[2018-03-06] MEDS: Nystatin 100,000 UNITS/GM Powder 15 GM Bottle TOPICAL SCH ×4 (08:19→21:50)
[2018-03-06] MEDS: Haloperidol 5 MG Tablet PO SCH (08:19)
--- NOTE | 2018-03-06 11:59 | P.TTN ---
- Patient Problems Problems: 1. Discharge planning 2. Medication compliance 3. Knowledge deficit 4. Lack of coping skills - Progress Toward Goals Provider Present: Dr. Hao Quintanilla Provider Input: 03/06/18 Patient doing better, continue with treatment. 03/01/18 patient found lying in her bed. Patient was pleasant, confused, medication compliant. Nurse Input: 03/06/18 Patient's nurse reports patient is cooperative, med compliant, seclusive. 03/01/18 Patient is cooperative, med compliant Psychiatric Counselors Present: Lilia Luke [facility] Psychiatric Therapist Input: 03/06/18 Patient found sitting in the dayroom. Patient was cooperative, but continues to state she is hearing command voices. Patient reports having nightmares still, denies suicidal and homicidal ideation. Patient will return home once discharged. 03/01/18 Patient found in her room lying down. Patient was pleasant, cooperative, still confused and paranoid. Patient is medication compliant Group Spec/RT/OT/ALLAN Present: Cheryle Burdick, GPS, SANJANA Durbin Group Spec/RT/OT/ALLAN Input: 03/06/18 Patient refuses to attend groups. 03/01/18 Patient refused to go to group - Documentation Teaching Recipient: Patient
--- NOTE | 2018-03-06 12:06 | P.PNPSY ---
Subjective Remarks: Patient seen in day room with floor staff, chart reviewed, patient compliant medication. Patient somewhat anxious today complaining of continued auditory hallucinations with male appears to be coming out of the TV. She denies suicidality. She states she talked to her daughter earlier today daughter's felt she needs to stay here for a few more days. We will increase Haldol from 5 mg 3 times daily to 10 mg twice daily Review of Systems All other systems reviewed negative except as stated in HPI Mental Status Examination Appearance: Appropriate, Disheveled (Improved), Other (Morbidly obese female) Consciousness: Alert Orientation: Person, Place, Date/Time Motor Activity: Other (Today needing assistance to stand up shuffling with difficulty using the walker) Speech: Hesitant, Slow Language: Adequate Fund of Knowledge: Adequate Attention and Concentration: Easily distracted Memory: Unremarkable Mood: Sad, Anxious (Slightly) Affect: Other (Decreased range and intensity) Thought Process & Associations: Loose associations, Disorganized, Other ( [place]) Thought Content: Bizarre thinking, Hallucinations, Delusional Hallucination Type: Auditory (Today coming through the TV) Delusion Type: Bizarre, Paranoid Suicidal Ideation: No Suicidal Plan: No Suicidal Intention: No Homicidal Ideation: No Homicidal Plan: No Homicidal Intention: No Insight: Poor Judgment: Poor Assessment and Plan - Assessment (1) Unspecified psychosis Code(s): F29 - Unspecified psychosis not due to a substance or known physiological condition Status: Acute - Plan Plan: Patient remains psychotic delusional somewhat sad see medication adjustment above Justification for Continued Inpatient Stay: At this time patient with decompensated placed on a lower level of care Discharge Planning: Return home with family Request Healthcare Surrogate/Guardian Advocate?: No (1) Unspecified psychosis Qualifiers: Psychosis type: brief psychotic disorder Qualified Code(s): F23 - Brief psychotic disorder
[2018-03-06] MEDS: Acetaminophen 325 MG Tablet PO PRN (13:41)
[2018-03-06] MEDS: traZODone 50 MG Tablet PO SCH (21:26)
[2018-03-07] MEDS: Chlorthalidone 50 MG Tablet PO SCH (08:50)
[2018-03-07] MEDS: Metoprolol Tartrate 25 MG Tablet PO SCH (08:51)
[2018-03-07] MEDS: Nystatin 100,000 UNITS/GM Powder 15 GM Bottle TOPICAL SCH ×2 (08:51→14:06)
[2018-03-07] MEDS: Acetaminophen 325 MG Tablet PO PRN (09:14)
--- NOTE | 2018-03-07 12:47 | P.DSPSY ---
Psychiatry Discharge Summary Inpatient Psychiatric care?: Yes Advance Directives: No Mental Health Advance Directive: No Health Care Proxy: No - Admission Admission Date: February 27, 2018 18:42 - Admission Diagnosis (1) Adjustment disorder with mixed anxiety and depressed mood Code(s): F43.23 - Adjustment disorder with mixed anxiety and depressed mood Brief History: Patient is a 58-year-old morbidly obese white female comes here under [place] signed by Basia FREEMAN dated July 28, 2018 at 5:30 PM that diagnosis reviewed. They are essentially states patient reports impaired sleep with increase in auditory hallucinations family report patient is responding to voices thoughts of self on floor and has been wandering also threatening son grandson has eyes ages 6 years old and 4 years old allegedly a friend of hers is currently not on psych meds. Patient seen screen in the ED urine toxicology negative blood alcohol of negative. Our EMR reviewed it appears patient is had prior contacts with [facility]. It appears most recent was about 2 years ago questionable if she was compliant with the medication. At the present time patient laying quietly in the bed on [address] present throughout session patient lying quite still on her bed morbidly obese. Voicing fairly detailed paranoid delusions feeling that "he" has put devices in her ear and in her head and that he has been stalking and monitoring herself and her children. She feels the FBI might be involved with this. At times she appears to hear them speaking to her also. Patient does denies suicidality at this. She denies any alcohol or drug use related to this. She states she is not seeing a psychiatrist at this time. It appears she lives with HER-2 small children. She is vague about any past mental health history in her family somewhat vague about any past physical or sexual abuse. She is vague about any addictions in her family. The any event at this time patient does make criteria for for involuntary psychiatric hospitalization under the [place]. I will do first opinion request second opinion I feel she does have capacity to sign for medications. We did discuss medications she states she has been on a Haldol shot in the past we will start her on Haldol 5 mg twice daily and if she tolerates that over the next day or 2 consider Haldol Decanoate. We will have the hospitalist also consult with us. Hopefully patient can return home to her family Tobacco Use In Past 30 Days: No How Often Do You Have a Drink Containing Alcohol: Never Hospital Course: Patient's initial hospital course was significant for her depression and anxiety auditory hallucinations and vague suicidal ideation. However as the medications were adjusted the patient began to show improvement in her behavior and her compliance with medication and her ability to socialize. Patient is seen today with nurse Latoya, she is alert and oriented calm cooperative and pleasant with me with an occasional small smile. She is able contract to do no harm denying suicidality. Says the voices are just about gone. Patient states she has an appointment with her PCP tomorrow that she wishes to keep. She is a good conversations with her 2 adult children whom she lives with. She does desire to be discharged today less at this time I feel patient has reached maximum benefit of this hospitalization will be discharged today with Rx times 1 month to follow-up with her PCP tomorrow and of the counselors arrange psychiatric follow-up through her insurance panel - Discharge Discharge Date: 03/07/18 - Discharge Diagnosis (1) Adjustment disorder with mixed anxiety and depressed mood Diagnosis: Principal Code(s): F43.23 - Adjustment disorder with mixed anxiety and depressed mood Status: Acute Discharge Disposition: Home - Discharge Instructions Discharge Diet: Regular Diet Activities You Can Perform: Regular- No Restrictions - Discharge Time > 30 minutes Mental Status Examination Appearance: Appropriate, Disheveled (Improved), Other (Morbidly obese female) Consciousness: Alert Orientation: Person, Place, Date/Time Motor Activity: Other (Today needing assistance to stand up shuffling with difficulty using the walker) Speech: Hesitant, Slow Language: Adequate Fund of Knowledge: Adequate Attention and Concentration: Easily distracted Memory: Unremarkable Mood: Sad, Anxious (Slightly) Affect: Other (Decreased range and intensity) Thought Process & Associations: Loose associations, Disorganized, Other ( [place]) Thought Content: Bizarre thinking, Hallucinations, Delusional Hallucination Type: Auditory (Today coming through the TV) Delusion Type: Bizarre, Paranoid Suicidal Ideation: No Suicidal Plan: No Suicidal Intention: No Homicidal Ideation: No Homicidal Plan: No Homicidal Intention: No Insight: Poor Judgment: Poor Discharge/Advance Care Plan - Results Vital Signs: Last Vital Signs Temp 97.5 F L 03/07/18 05:54 Pulse 71 03/07/18 05:54 Resp 18 03/07/18 05:54 BP 127/56 L 03/07/18 05:54 Pulse Ox 98 03/07/18 05:54 Lab Results: Laboratory Results TSH 1.100 uIU/mL (0.358-3.740) 02/27/18 14:00 Urine Culture Comments Culture indicated 02/27/18 14:00 Summary of Procedures: None done Pending Results: None - Medications Number of antipsychotic medications at discharge: 1 - Discharge Care Plan Goals to Promote Your Health: * To prevent worsening of your condition and complications * To maintain your health at the optimal level Directions to Meet Your Goals: Take your medications as prescribed Follow your dietary instruction Follow activity as directed Keep your appointments as scheduled Take your immunizations and boosters as scheduled If your symptoms worsen call your PCP, if no PCP go to Urgent Care Center or Emergency Room For 13/09 questions related to your inpatient stay or results of tests pending at discharge, please contact Dr. Leroy Quintanilla MD at Smoking is Dangerous to Your Health. Avoid second hand smoking
== END 2018-03-07 16:10 | disposition home or self-care (01) | DRG 882 ==
LOC: NEPD 11:46 → H250 18:50 → NEPD 18:50 → H250 19:08 → H260 03-02 15:41 → H250 03-05 08:05
PROVIDERS: ADMIT Psychiatry & Neurology Psychiatry; ATTEND Psychiatry & Neurology Psychiatry
CPT/HCPCS: 80048; 80053; 80307; 81001; 83735; 84443; 85025; 85027; 87086; 90791; 99285; Q0163